=== PATIENT | male | born 1995 | race Hispanic/Latino ===

== ENCOUNTER 2021-10-17 14:21 | Emergency (ER) | payer SELFPAY ==
[~2021-10-17] VITALS: Ht 182.9 cm; Wt 117.9 kg
[2021-10-17] MEDS ORDERED: ACYCLOVIR800 MG PO (15:01)
== END 2021-10-17 17:27 | disposition home or self-care (01) ==
LOC: ER 14:39
DX: A60.01 Herpesviral infection of penis (principal); K12.1 Other forms of stomatitis
CPT/HCPCS: 99283

== ENCOUNTER 2021-11-09 17:33 | Emergency (ER) | payer SELFPAY ==
[~2021-11-09] VITALS: Ht 182.9 cm; Wt 117.9 kg
[~2021-11-09 17:33] MED LIST: ACYCLOVIR800 MG PO
[2021-11-09] MEDS ORDERED: PREDNISONE20 MG PO (18:46)
[2021-11-09] MEDS ORDERED: COLCHICINE0.6 M1 PO (18:46)
== END 2021-11-09 19:15 | disposition home or self-care (01) ==
LOC: FSED 17:37
DX: M25.521 Pain in right elbow (principal); M10.9 Gout, unspecified
CPT/HCPCS: 99283

== ENCOUNTER 2022-02-13 14:37 | Emergency (ER) | payer SELFPAY ==
[~2022-02-13] VITALS: Ht 175.3 cm; Wt 131.1 kg
[~2022-02-13 14:37] MED LIST changes: +COLCHICINE0.6 M1 PO; +PREDNISONE20 MG PO
[2022-02-13] MEDS ORDERED: DOXYCYCLINE HY100 MG PO (15:40)
[2022-02-13] MEDS ORDERED: CLEOCIN HCL300 MG PO (15:41)
== END 2022-02-13 15:53 | disposition home or self-care (01) ==
LOC: FSED 15:14
DX: L02.213 Cutaneous abscess of chest wall (principal)
CPT/HCPCS: 99282